=== PATIENT | female | born 1990 | race Caucasian/White ===

== ENCOUNTER 2021-06-24 22:38 | Emergency (ER) | payer BC ==
[2021-06-25 00:25] LABS: HEMOGLOBIN 14.8 gm/dl (12.3-15.3); RED BLOOD COUNT 4.68 M/UL (4.00-5.10); WHITE BLOOD COUNT 15.5 K/UL (4.5-11.0)
[2021-06-25 00:43] LABS: BUN/CREATININE RATIO 7 (0-10)
[2021-06-25] MEDS ORDERED: ZITHROMAX250 MG PO (02:17)
[2021-06-25] MEDS ORDERED: BENZONATATE100 MG PO (02:17)
== END 2021-06-25 02:31 | disposition home or self-care (01) ==
LOC: ER1 22:38
PROVIDERS: Physician Assistant
DX: R04.2 Hemoptysis (principal); R06.02 Shortness of breath; R19.7 Diarrhea, unspecified; R51.9 Headache, unspecified; R42 Dizziness and giddiness; R20.2 Paresthesia of skin; G47.00 Insomnia, unspecified; E03.9 Hypothyroidism, unspecified; Z88.8 Allergy status to other drugs, medicaments and biological substances; Z91.040 Latex allergy status; Z20.822 Contact with and (suspected) exposure to COVID-19
CPT/HCPCS: 71045; 80053; 85025; 85379; 93005; 99285; U0002